=== PATIENT | female | born 1960 | race Asian ===

== ENCOUNTER 2017-04-08 08:11 | Day surgery (SDC) | payer OTHER ==
[~2017-04-08] VITALS: Ht 167.6 cm; Wt 166.0 kg
[2017-04-08] VITALS (10 sets, daily range): BP systolic 114–132; BP diastolic 68–74; PULSE 60–70; RESP 16–18; Ht 167.6 cm; Wt 166.0 kg
[2017-04-08] MEDS ORDERED: CALC1TAB79 PO (09:23)
[2017-04-08] MEDS ORDERED: METO-448 PO (09:23)
[2017-04-08] MEDS ORDERED: ASPI-664 PO (09:24)
[2017-04-08] MEDS ORDERED: FOLI-49 PO (09:24)
[2017-04-08] MEDS ORDERED: GABA-526 PO ×2 (09:25)
[2017-04-08] MEDS ORDERED: ATOR80TA75 PO (09:26)
[2017-04-08] MEDS ORDERED: OMEP20CA16 PO (09:26)
[2017-04-08] MEDS ORDERED: FURO-110 PO (09:26)
[2017-04-08] MEDS ORDERED: AMLO-147 PO (09:27)
[2017-04-08] MEDS ORDERED: LEFL20TA18 PO (09:27)
[2017-04-08] MEDS ORDERED: DICLOFENAC 0.1% 2.5 ML OPH OPER SCH (10:00)
[2017-04-08] MEDS ORDERED: CYCLOPENTOLATE/PHENYLEPH 2 ML OPH OPER SCH (10:00)
[2017-04-08] MEDS ORDERED: TROPICAMIDE 1% 2 ML OPH OPER SCH (10:00)
[2017-04-08] MEDS ORDERED: CIPROFLOXACIN 0.3% 2.5 ML OPH OPER SCH (10:00)
[2017-04-08] MEDS ORDERED: CEFAZOLIN 1 GM INJ INJ ONE (11:34)
[2017-04-08] MEDS ORDERED: DEXAMETHASONE 4 MG/ML 1 ML INJ INJ ONE (11:34)
[2017-04-08] MEDS ORDERED: CARBACHOL 0.01% 1.5 ML OPH INJ IO ONE (11:34)
[2017-04-08] MEDS ORDERED: HYALURONATE/CHONDROITIN 1ML OPH INJ IO ONE (11:34)
--- NOTE | 2017-04-08 11:49 | HPN ---
Date/Time of Note Date/Time of Note DATE: 04/08/17 TIME: 11:49 Interval H&P Admission Note Pt. seen H&P reviewed: No system changes LEV JUARES MD Apr 08, 2017 11:49
[2017-04-08] MEDS ORDERED: ONDANSETRON 4 MG INJ IV PRN (12:30)
[2017-04-08] MEDS ORDERED: EPHEDrine SULFATE 50 MG/5 ML SYG IV PRN (12:30)
[2017-04-08] MEDS ORDERED: IPRATROPIUM (NEB) 0.5 MG/2.5 ML AMP HHN PRN (12:30)
[2017-04-08] MEDS ORDERED: ALBUTEROL 0.083% (NEB) 2.5 MG/3 ML AMP HHN PRN (12:30)
[2017-04-08] MEDS ORDERED: MEPERIDINE 25 MG INJ IV PRN (12:30)
[2017-04-08] MEDS ORDERED: LABETALOL HCL 20MG INJ IV PRN (12:30)
[2017-04-08] MEDS ORDERED: DIPHENHYDRAMINE 50 MG INJ IV PRN (12:30)
[2017-04-08] MEDS ORDERED: TRIMETHOBENZAMIDE 100 MG/ML VIAL IM PRN (12:30)
[2017-04-08] MEDS ORDERED: OXYCODONE/ACETAMINOPHEN (5/325) TAB PO PRN ×2 (12:30)
[2017-04-08] MEDS ORDERED: FENTAnyl 50 MCG/ML VIAL IV PRN ×3 (12:30)
[2017-04-08] MEDS ORDERED: hydrALAzine 20 MG INJ IV PRN (12:30)
[2017-04-08] MEDS ORDERED: HYDROmorphONE (0.2 MG/ML) 10ML SYG IV PRN ×3 (12:30)
[2017-04-08] MEDS ORDERED: MIDAZOLAM 1 MG/ML 2 ML INJ IV PRN (12:30)
--- NOTE | 2017-04-09 06:42 | OPR ---
DATE OF OPERATION: SURGEON: Lul Mcdowell MD ANESTHESIOLOGIST: Padilla Rubi MD PREOPERATIVE DIAGNOSIS: Mature cataract, right eye. POSTOPERATIVE DIAGNOSIS: Mature cataract, right eye. OPERATION PERFORMED: Round pupil extracapsular cataract extraction with posterior chamber intraocular lens implant, right eye. OPERATIVE PROCEDURE: The patient was brought to the operating room on an eye gurney, positioned appropriately and attached electrocardiogram monitor. Given oxygen by nasal cannula. After some intravenous was administered, the patient received local anesthesia using lidocaine 4 percent, given lid block and retrobulbar injection. The patient was then prepped and draped in the usual manner and a speculum was inserted between the lids of the right eye. Two paracentesis incisions were made at the 10 and 2 o'clock position through clear cornea at the corneal scleral limbus. A central incision was made with a 3.0 mm keratome at the corneal limbus at the 12 o'clock position. Through this opening an irrigating cystotome was introduced and a full sized capsulotomy was performed, and then balanced salt solution was used for hydrodissection of the lens nucleus. An attempt was made to emulsify the lens nucleus,however, it was noted that the nucleus was extremely hard and was minimally responsive to the highest setting of the ultrasound on the phacoemulsification unit. It was therefore decided to change to an extracapsular cataract extraction. Using a curved blade, an incision was made through cornea, adjacent to the corneal scleral limbus, down to mid stromal depth. Additional DisCoVisc was then injected into the anterior chamber and using corneal scissors, the incision was extended to approximately 9-10 mm. Following this some additional DisCoVisc was injected to loosen the lens nucleus, and then a lens loop was inserted behind the lens nucleus and was extracted manually. This was passed to the surgical assistant certified for submission to pathology as a gross specimen. Five peripheral #10-0 nylon sutures were placed and tied with the ends cut short. The irrigation aspiration portion of the cataract surgery was then performed to remove the remnants of the lens cortex left behind. When it was all aspirated from the anterior chamber, there was clear reflex from the retina and the capsule looked clear. Additional DisCoVisc was injected into the anterior and posterior chamber and then a #5.0 diopter posterior chamber intraocular lens (Bausch and Lomb, model LI61 AO) was inserted into the posterior chamber with the haptics oriented in the horizontal meridian. Two additional #10-0 nylon sutures were placed across the wound. The DisCoVisc was aspirated from the anterior chamber and Miostat was instilled to constrict the pupil. The final 2 sutures were then tied, the ends were cut short, and all knots were buried. At the end of the procedure 0.5 mL of Ancef and 0.5 mL of dexamethasone was injected into the subtenon's space inferiorly. The speculum was removed. Ciprofloxacin drops were placed on the surface of the eye and the eye was patched. The patient then left the operating room in satisfactory condition. Dictated By: Lul Mcdowell MD /marly/hazel /Document#: [id number] LOVE
--- NOTE | 2017-04-09 12:31 | PREOPHP ---
DATE OF ADMISSION: 04/08/2017 HISTORY OF PRESENT ILLNESS: This 57-year-old patient is admitted for elective cataract surgery of the left eye. This patient has had decreased vision in the left eye for an extended period of time until the patient can only see light perception. The patient has a 10-year history of insulin-dependent diabetes mellitus, as well as systemic hypertension, hypercholesterolemia, a history of a left-sided CVA 2 years ago. MEDICATIONS: Includes amlodipine, Humalog, Lantus, Lipitor, folic acid, metoprolol, gabapentin, aspirin (discontinued 1 week prior to surgery), omeprazole, metformin, prednisone, furosemide. ALLERGIES: THERE ARE NO KNOWN ALLERGIES. PHYSICAL EXAMINATION: On examination the visual acuity with best correction is 20/80 in the right eye and light perception in the left eye. Slit lamp examination reveals a posterior chamber intraocular lens in the right eye, advanced mature cataract in the left eye. Applanation tonometry is 16 mmHg in both eyes. Examination of the retina in the right eye is grossly normal. In the left eye there was no view due to the advanced cataract formation. DIAGNOSIS: Mature cataract, left eye. PLAN: Cataract extraction with lens implant, left eye. The risks and alternatives to the surgery due to the advanced nature of the cataracts have been discussed with the patient, and the probability that the patient will require an extracapsular cataract extraction rather than a phacoemulsification procedure have been discussed with the patient as well. In addition, it is not possible to prognosticate visual outcome due to the inability to visualize the retina in the left eye. The patient and family understand this and agrees to proceed with surgery in hopes of improvement of visual acuity leading to greater ability to perform activities of daily living. Dictated By: Lul Mcdowell MD /marly/macy /Document#: [id number] CC: Lul Mcdowell MD;*End*
[2017-04-09] MEDS ORDERED: LIDOCAINE 4% (MPF) 5 ML INJ ONE (18:02)
[2017-04-09] MEDS ORDERED: PROPOFOL 20 ML ONE (18:02)
[2017-04-09] MEDS ORDERED: CEFAZOLIN 1 GM INJ ONE (18:02)
[2017-04-09] MEDS ORDERED: GENTAMICIN 80 MG INJ ONE (18:02)
[2017-04-09] MEDS ORDERED: CARBACHOL 0.01% 1.5 ML OPH INJ ONE (18:02)
[2017-04-09] MEDS ORDERED: DEXAMETHASONE 4 MG/ML 1 ML INJ ONE (18:02)
[2017-04-09] MEDS ORDERED: EPINEPHrine 0.1 MG/ML SYG ONE (18:02)
[2017-04-09] MEDS ORDERED: LIDOCAINE 2% (SDV) 5 ML INJ ONE (18:02)
[2017-04-09] MEDS ORDERED: HYALURONATE/CHONDROITIN 1ML OPH INJ ONE (18:02)
[2017-04-09] MEDS ORDERED: EPINEPHrine 1 MG INJ ONE (18:02)
== END 2017-04-08 13:30 | disposition home or self-care (01) ==
LOC: SDS 08:11
PROVIDERS: ATTEND Ophthalmology
DX: H25.89 Other age-related cataract (principal); E11.9 Type 2 diabetes mellitus without complications; I10 Essential (primary) hypertension; E78.5 Hyperlipidemia, unspecified; I69.354 Hemiplegia and hemiparesis following cerebral infarction affecting left non-dominant side; R41.3 Other amnesia
CPT/HCPCS: 66984; 82962; J0690; J1100; V2632; Z7512; Z7610; J0171; J1580